=== PATIENT | male | born 1945 | race Caucasian/White ===

== ENCOUNTER → 2017-02-08 | Outpatient (CLI) | payer MEDICARE ==
--- NOTE | 2017-02-08 18:49 | US ---
EXAMINATION TYPE: US venous doppler duplex LE LT DATE OF EXAM: 02/08/2017 6:36 PM COMPARISON: NONE CLINICAL HISTORY: M79.89 Left leg swelling and redness. SIDE PERFORMED: Left TECHNIQUE: The lower extremity deep venous system is examined utilizing real time linear array sonog rah with graded compression, doppler sonography and color-flow sonography. VESSELS IMAGED: External Iliac Vein (EIV) Common Femoral Vein Deep Femoral Vein Greater Saphenous Vein * Femoral Vein Popliteal Vein Small Saphenous Vein * Proximal Calf Veins (* superficial vessels) Left Leg: Negative for DVT. At the area of swelling and redness, there is multiple non-compressible areas with no color-flow wit hin. Possible superficial venous thrombophlebitis at the area of concern. There is a probable lymph n ode in the left groin measuring 2.1 x 1.2 x 1.6 cm IMPRESSION: There is a left inguinal lymph node measures 21 x 12 mm. No evidence of deep venous th rombosis. There is complex echogenicity near the skin surface in the area of the redness that could r elate to varicose veins and superficial thrombophlebitis.
== END | disposition home or self-care (01) ==
LOC: RADUSMAIN 17:45
PROVIDERS: ATTEND Internal Medicine
DX: M79.89 Other specified soft tissue disorders (principal)

== ENCOUNTER → 2018-10-26 | Outpatient (CLI) | payer MEDICARE ==
--- NOTE | 2018-10-27 11:55 | US ---
EXAMINATION TYPE: US groin RT DATE OF EXAM: 10/26/2018 COMPARISON: NONE CLINICAL HISTORY: R10.80 PAIN IN RT GROIN. Pain in right groin. Patient states lifting something hea vy then having pain/burning in right groin few days later. Right groin scanned. Prominent lymph node appearing lesion seen - 1.4 x 0.9 x 0.7 cm. In right groin , possible break in muscle visualized with peristalsing bowel seen during valsalva maneuvers, about 1 .4 cm. Contralateral image taken. IMPRESSION: 1. Suspect right inguinal hernia.
== END | disposition home or self-care (01) ==
LOC: RADUSWWP 15:45
PROVIDERS: ATTEND Internal Medicine
DX: R10.31 Right lower quadrant pain (principal)

== ENCOUNTER → 2019-02-27 | Outpatient (CLI) | payer MEDICARE ==
--- NOTE | 2019-02-28 09:00 | CT ---
EXAMINATION TYPE: CT abdomen w con DATE OF EXAM: 02/27/2019 COMPARISON: None INDICATION: Abnormal bloodwork. DLP: 1175 mGycm, Automated exposure control for dose reduction was used. CONTRAST: 100ml mL of Isovue 300. Study performed without Oral Contrast TECHNIQUE: Axial images were obtained from above the diaphragm to the iliac crest region in the axial plane at 5 mm thick sections. Reconstructed images are reviewed on the computer in the coronal plan e. FINDINGS: Limited CT sections are obtained the lung bases. The lung bases are clear. CT ABDOMEN: Liver: Normal Spleen: Normal, Splenule is in the splenic hilum. Pancreas: Normal Adrenal glands: Right adrenal gland is minimally thickened at 0.9 cm. Right adrenal gland appears nor mal. Gallbladder: Normal Kidneys: No masses are evident. No hydronephrosis is present. There is a superior pole right renal cyst measuring 0 Hounsfield units left kidney. Delayed images were obtained through the kidneys, whi ch remain unremarkable. Aorta: Vascular calcification is within the aorta. Inferior vena cava: Normal. Mesentery: There is diffuse increased signal within the left upper quadrant mesentery. This inflamma tory type change is nonspecific. There are couple of small lymph nodes in this region. Vascular struc tures go through this region. There is bowel adjacent to this is somewhat close to but inferior to th e pancreas. Exact etiology of this changes unclear. No free fluid is evident within the [id number]. IMPRESSIONS: 1. Inflammatory type change within the localized section of left upper quadrant mesentery of uncerta in etiology. 2. Superior pole left renal cyst.
== END | disposition home or self-care (01) ==
LOC: RADCTMAIN 16:50
PROVIDERS: ATTEND Internal Medicine Hematology & Oncology
DX: K66.8 Other specified disorders of peritoneum (principal); N28.1 Cyst of kidney, acquired
CPT/HCPCS: 74160; Q9967